=== PATIENT | female | born 1965 | race American Indian/Alaskan Native ===

== ENCOUNTER 2020-09-20 15:40 | Emergency (ER) | payer SELFPAY ==
--- NOTE | 2020-09-20 16:44 | Emergency Department Report ---
Blank Doc - Documentation Documentation: 55-year-old female that presents with bilateral flank pain. This initial assessment/diagnostic orders/clinical plan/treatment(s) is/are subject to change based on patient's health status, clinical progression and re- assessment by fellow clinical providers in the ED. Further treatment and workup at subsequent clinical providers discretion. Patient/guardians urged not to elope from the ED as their condition may be serious if not clinically assessed and managed. Initial orders include: 1- Patient sent to [facility] for further evaluation and treatment 2- UA
[2020-09-20 16:53] VITALS: BP 168/94
[2020-09-20 17:32] LABS: Bacteria,Urine 1+ /HPF (Negative); Bilirubin,Urine NEG (Negative); Blood,Urine NEG (Negative); Color,Urine Yellow (Yellow); Protein,Urine <15 mg/dL mg/dL (Negative); RBC,Urine < 1.0 /HPF (0.0-6.0); Urobilinogen,Urine < 2.0 mg/dL (<2.0)
--- NOTE | 2020-09-20 18:14 | Emergency Department Report ---
ED Back Pain/Injury HPI - General Chief Complaint: Back Pain/Injury Stated Complaint: BACK PAIN Time Seen by Provider: 09/20/20 16:43 Source: patient Limitations: No Limitations - History of Present Illness Initial Comments: 55 y/o female comes in for chronic back pain. Reports that it is just under her bra band. This has been going for 4 months. Has tried Aleve and has used pillows without and resolution. Pain is wprst with lying down better with standing and sitting. Not able to sleep secondary to Reports a family history of back cancer. MD Complaint: back pain Onset/Timin -: month(s) Similar Symptoms Previously: Yes Severity scale (0 -10): 10 Quality: aching Consistency: intermittent Improves With: other (standing ) Worsens With: supine Context: unknown Associated Symptoms: denies: weakness, difficulty walking, difficulty urinating Treatments Prior to Arrival: NSAIDS - Related Data Previous Rx's Medication Instructions Recorded Last Taken Type Baclofen 5 mg PO TID PRN #15 tablet 09/20/20 Unknown Rx traMADoL [Ultram 50 MG tab] 50 mg PO Q6HR PRN #12 tablet 09/20/20 Unknown Rx Allergies Allergy/AdvReac Type Severity Reaction Status Date / Time No Known Allergies Allergy Unverified 09/20/20 17:01 ED Review of Systems ROS: Stated complaint: BACK PAIN Other details as noted in HPI Comment: All other systems reviewed and negative ED Past Medical Hx - Past Medical History Previous Medical History?: Yes Additional medical history: Chronic back pain - Medications Home Medications: Home Medications Medication Instructions Recorded Confirmed Last Taken Type Baclofen 5 mg PO TID PRN #15 tablet 09/20/20 Unknown Rx traMADoL [Ultram 50 MG tab] 50 mg PO Q6HR PRN #12 tablet 09/20/20 Unknown Rx ED Physical Exam - General Limitations: No Limitations General appearance: alert, in no apparent distress - Head Head exam: Present: atraumatic, normocephalic - Eye Eye exam: Present: normal appearance - ENT ENT exam: Present: mucous membranes moist - Neck Neck exam: Present: normal inspection, full ROM - Respiratory Respiratory exam: Present: normal lung sounds bilaterally. Absent: respiratory distress - Cardiovascular Cardiovascular Exam: Present: regular rate, normal rhythm. Absent: systolic murmur, diastolic murmur, rubs, gallop - Extremities Exam Extremities exam: Present: normal inspection, full ROM - Back Exam Back exam: Present: full ROM, muscle spasm (Thoracic). Absent: vertebral tenderness - Neurological Exam Neurological exam: Present: alert, oriented X3, normal gait - Psychiatric Psychiatric exam: Present: normal affect, normal mood - Skin Skin exam: Present: warm, dry, intact, normal color. Absent: rash ED Course Vital Signs 09/20/20 16:49 Temperature 98.3 F Pulse Rate 78 Respiratory 18 Rate Blood Pressure 168/94 O2 Sat by Pulse 99 Oximetry ED Medical Decision Making - Radiology Data Radiology results: report reviewed [facility] [address] [place] [address] XRay Report Signed Patient: AUNG PEGUERO MR#: [id number] : 1965 Acct:[id number] Age/Sex: 55 / F ADM Date: 09/20/20 Loc: ED Attending Dr: Ordering Physician: CHELO OSBORN Date of Service: 09/20/20 Procedure(s): XR spine thoracolumbar 2V Accession Number(s): [id number] cc: CHELO OSBORN Fluoro Time In Minutes: . THORACIC SPINE 2 VIEWS INDICATION / CLINICAL INFORMATION: Back pain. COMPARISON: None available. FINDINGS: VERTEBRAE: No fracture. No significant malalignment. DISC SPACES:No significant abnormality. ADDITIONAL FINDINGS: None. IMPRESSION: 1. No significant abnormality. Signer Name: Usman Prabhakar MD Signed: 09/20/2020 6:51 PM Workstation Name: [id number] Transcribed By: TL Dictated By: Usman Prabhakar MD Electronically Authenticated By: Usman Prabhakar MD Signed Date/Time: 09/20/201850 DD/ 50 TD/TT: - Medical Decision Making 55 y/o female comes in for chronic back pain. Reports that it is just under her bra band. This has been going for 4 months. Has tried Aleve and has used pillows without and resolution. Pain is wprst with lying down better with standing and sitting. Not able to sleep secondary to Reports a family history of back cancer. Critical care attestation.: If time is entered above; I have spent that time in minutes in the direct care of this critically ill patient, excluding procedure time. ED Disposition Clinical Impression: Back pain Disposition: DC-01 TO HOME OR SELFCARE Is pt being admited?: No Does the pt Need Aspirin: No Condition: Stable Instructions: Acute Back Pain, Adult Additional Instructions: X-rays negative for any acute findings. Urine is negative for any acute infection. Recommend taking pain medication and muscle relaxant follow-up with a back specialist. Prescriptions: Baclofen 5 mg PO TID PRN #15 tablet PRN Reason: Muscle Spasm traMADoL [Ultram 50 MG tab] 50 mg PO Q6HR PRN #12 tablet PRN Reason: Pain Referrals: PRIMARY CAREMD [Primary Care Provider] - 3-5 Days ROMERO HERRON II, MD [Staff Physician] - 3-5 Days Forms: Work/School Release Form(ED)
--- NOTE | 2020-09-20 18:56 | XRay Report ---
. THORACIC SPINE 2 VIEWS INDICATION / CLINICAL INFORMATION: Back pain. COMPARISON: None available. FINDINGS: VERTEBRAE: No fracture. No significant malalignment. DISC SPACES:No significant abnormality. ADDITIONAL FINDINGS: None. IMPRESSION: 1. No significant abnormality. Signer Name: Usman Prabhakar MD Signed: 09/20/2020 6:51 PM Workstation Name: [id number]
== END 2020-09-20 19:42 | disposition home or self-care (01) ==
LOC: ED 15:40
DX: M54.9 Dorsalgia, unspecified (principal); Z79.899 Other long term (current) drug therapy
CPT/HCPCS: 72080; 81001; 99283